=== PATIENT | male | born 1970 | race Caucasian/White ===

== ENCOUNTER 2018-12-05 06:55 | Emergency (ER) | payer BC, OTHER ==
[~2018-12-05] VITALS: Ht 165.1 cm; Wt 89.8 kg
--- NOTE | 2018-12-05 07:05 | NUR ---
pt bib wc to er bed 6 w. caregiver
[2018-12-05 07:11] VITALS: BP 132/85
--- NOTE | 2018-12-05 07:18 | NUR ---
Patient being evaluated by DR SMITH at bedside.
--- NOTE | 2018-12-05 07:19 | NUR ---
PT TO ED WITH LACERATION TO POSTERIOR HEAD X 0510 THIS AM. CAREGIVER STATES "HE HAD A BEHAVIOR EPISODE AND HIT HIS HEAD" NO LOC. NO ACTIVE BLEEDING. PT APPROPRIATE PER CAREGIVER. IN BED FOR MD LYON.
[2018-12-05] MEDS ORDERED: LIDOCAINE/EPI 1% 1:100000 20 ML VIAL INJ ONE (07:25)
--- NOTE | 2018-12-05 07:35 | NUR ---
PROCEDURE COMPLETED BY DR SMITH PT TOLERATED WELL.
--- NOTE | 2018-12-05 07:59 | NUR ---
Patient discharged with v/s stable. Written and verbal after care instructions given and explained. Patient verbalized understanding. Wheel Chair Assisted with by caregiver. All questions addressed prior to discharge. Advised to follow up with PMD.
[2018-12-05 08:00] VITALS: BP 132/85
== END 2018-12-05 07:59 | disposition home or self-care (01) ==
LOC: MED 06:55
DX: S01.01XA Laceration without foreign body of scalp, initial encounter (principal); Z86.69 Personal history of other diseases of the nervous system and sense organs; W22.01XA Walked into wall, initial encounter; Y92.89 Other specified places as the place of occurrence of the external cause; Y93.89 Activity, other specified; Y99.8 Other external cause status
CPT/HCPCS: 12002; 90471; 90715; 99283; J2001

== ENCOUNTER 2019-01-10 18:42 | Inpatient (IN) | payer BC ==
[~2019-01-10] VITALS: Ht 165.1 cm; Wt 98.0 kg
[2019-01-10 18:49] VITALS: BP 116/78
[2019-01-10 19:50] LABS: HEMATOCRIT 52.4 % (36-52); HEMOGLOBIN 17.4 g/dL (12.0-18.0); MEAN CORPUSCULAR HEMOGLOBIN 30 pg (27-31); MEAN CORPUSCULAR HGB CONC 33 g/dL (33-37); MEAN CORPUSCULAR VOLUME 90.4 fL (80-94); PLATELET COUNT (AUTO) 288 K/uL (140-450); RED BLOOD CELL COUNT(AUTO) 5.79 MIL/uL (4.20-6.10); RED CELL DISTRIBUTION WIDTH 13.5 % (11.6-13.7)
[2019-01-10] MEDS ORDERED: ONDANSETRON 4 MG/2 ML VIAL IVP ONE (20:05)
[2019-01-10] MEDS ORDERED: NACL 0.9% 1,000 ML IV ONE (20:05)
[2019-01-10 20:08] LABS: ANION GAP 17.5 (8-16); CARBON DIOXIDE 22.9 mmol/L (21-32); CREATININE 1.3 mg/dL (0.7-1.3); POTASSIUM 4.4 mmol/L (3.5-5.1)
[2019-01-10 20:13] LABS: ALBUMIN 4.5 g/dL (3.4-5.0); TOTAL BILIRUBIN 0.4 mg/dL (0.0-1.0)
[2019-01-10 20:33] LABS: BASOPHILS % (MANUAL) 0 % (0-2); EOSINOPHILS % (MANUAL) 0 % (0-4); LYMPHOCYTES % (MANUAL) 5 % (20-46); MONOCYTES % (MANUAL) 4 % (5-12)
[2019-01-10] MEDS ORDERED: LEVOFLOXACIN 750 MG/D5W PREMIX 150 ML IV ONE (20:45)
[2019-01-10] MEDS ORDERED: NACL 0.9% 1,500 ML IV ONE (22:40)
[2019-01-10 22:50] LABS: APPEARANCE,URINE CLEAR (CLEAR); BILIRUBIN,URINE NEGATIVE (NEGATIVE); BLOOD, URINE NEGATIVE (NEGATIVE); COLOR,URINE YELLOW (YELLOW); LEUKOCYTE ESTERASE ,URINE TRACE (NEGATIVE); NITRITE, URINE NEGATIVE (NEGATIVE); PH,URINE 5.5 (5.0-9.0); UGLUCOSE NEGATIVE (NEGATIVE)
[2019-01-10 23:21] LABS: RBC,URINE 0-5 /HPF (0-5)
[2019-01-11] MEDS ORDERED: metroNIDAZOLE 500 MG/NS PREMIX 100 ML IV ONE (01:10)
[2019-01-11] MEDS ORDERED: ACETAMINOPHEN 325 MG TAB PO PRN (01:40)
[2019-01-11] MEDS ORDERED: HYDROcodone/APAP 7.5/325 MG 1 TAB PO PRN (01:40)
[2019-01-11] MEDS ORDERED: MORPHINE SULFATE 2 MG/ML SYR IVP PRN (01:40)
[2019-01-11] MEDS ORDERED: DOCUSATE SODIUM 100 MG GELCAP PO PRN (01:40)
[2019-01-11 02:04] LABS: PROTHROMBIN TIME 10.1 secs (10.8-13.4)
[2019-01-11 02:06] LABS: MAGNESIUM 1.6 mg/dL (1.8-2.4); PHOSPHORUS 2.9 mg/dL (2.5-4.9); THYROID STIMULATING HORMONE 4.81 uIU/mL (0.34-3.74)
[2019-01-11] MEDS ORDERED: NEBI5TAB4 PO (02:17)
[2019-01-11] MEDS ORDERED: ESCI20TA PO (02:17)
[2019-01-11] MEDS ORDERED: VITD1000 PO (02:17)
[2019-01-11] MEDS ORDERED: ARIP20TA1 PO (02:17)
[2019-01-11] MEDS ORDERED: LORA-476 PO (02:17)
[2019-01-11] MEDS ORDERED: LAMO100T19 PO (02:17)
[2019-01-11] MEDS ORDERED: POTA10TE30 PO (02:17)
[2019-01-11] MEDS ORDERED: RISP1TAB27 PO (02:17)
[2019-01-11] MEDS ORDERED: ZOLP5TAB1 PO (02:17)
[2019-01-11] MEDS ORDERED: OXYB5TAB26 PO (02:17)
[2019-01-11] MEDS: NACL 0.9% 1,000 ML IV SCH ×2 (02:45→11:55)
[2019-01-11 03:10] VITALS: BP 106/64
[2019-01-11] MEDS: ONDANSETRON 4 MG/2 ML VIAL IM/IVP PRN (03:20)
[2019-01-11] MEDS ORDERED: LEVOFLOXACIN 500 MG/D5W PREMIX 100 ML IV SCH (03:50)
[2019-01-11 04:00] VITALS: BP 110/71
[2019-01-11 08:00] VITALS: BP 116/66
[2019-01-11] MEDS: ARIPiprazole 10 MG TAB PO SCH ×2 (08:26→20:35)
[2019-01-11] MEDS: OXYBUTYNIN 5 MG TAB PO SCH ×2 (08:26→20:36)
[2019-01-11] MEDS: risperiDONE 1 MG TAB PO SCH ×2 (08:27→20:35)
[2019-01-11] MEDS: LORazepam 1 MG TAB PO SCH ×2 (08:27→20:36)
[2019-01-11] MEDS: ESCITALOPRAM 20 MG TAB PO SCH (08:28)
[2019-01-11] MEDS: CHOLECALCIFEROL 1,000 IU TAB PO SCH (08:28)
[2019-01-11] MEDS: LACTOBACILLUS RHAMNOSUS GG 1 EACH CAP PO SCH (08:28)
[2019-01-11 09:43] LABS: ANION GAP 12.2 (8-16); CARBON DIOXIDE 29.8 mmol/L (21-32)
[2019-01-11 09:46] LABS: BASOPHILS % (AUTO) 0.1 % (0.0-2.0); EOSINOPHILS % (AUTO) 0.2 % (0.0-4.0); HEMATOCRIT 43.8 % (36-52); HEMOGLOBIN 14.9 g/dL (12.0-18.0); LYMPHOCYTES # (AUTO) 0.8 K/uL (2.0-11.5); LYMPHOCYTES % (AUTO) 9.3 % (20.5-51.1); MEAN CORPUSCULAR HEMOGLOBIN 30 pg (27-31); MEAN CORPUSCULAR HGB CONC 34 g/dL (33-37); MEAN CORPUSCULAR VOLUME 89.3 fL (80-94); MONOCYTES # (AUTO) 0.7 K/uL (0.8-1.0); MONOCYTES % (AUTO) 7.9 % (1.7-9.3); NEUTROPHILS # (AUTO) 6.8 K/uL (1.8-7.7); NEUTROPHILS % (AUTO) 82.5 % (42.2-75.2); PLATELET COUNT (AUTO) 242 K/uL (140-450); RED CELL DISTRIBUTION WIDTH 13.5 % (11.6-13.7); WHITE BLOOD COUNT (AUTO) 8.3 K/uL (4.8-10.8)
[2019-01-11] MEDS: metroNIDAZOLE 500 MG/NS PREMIX 100 ML IV SCH ×2 (10:55→16:57)
[2019-01-11] MEDS ORDERED: MAG SULF 2000 MG/WATER PREMIX 50 ML IV SCH (12:00)
[2019-01-11 12:05] VITALS: BP 116/57
[2019-01-11] MEDS ORDERED: ALBUTEROL SULFATE/IPRATROPIU 3 ML SOL IH PRN (14:05)
[2019-01-11] MEDS ORDERED: ZOLPIDEM 5 MG TAB PO PRN (14:17)
[2019-01-11] MEDS ORDERED: PANTOPRAZOLE 40 MG INJ VIAL IVP SCH (15:00)
[2019-01-11] MEDS: DEXT 5% / NACL 0.45% 1,000 ML IV SCH (15:19)
[2019-01-11 16:05] VITALS: BP 115/62
[2019-01-11 20:00] VITALS: BP 107/74
[2019-01-11] MEDS: LEVOFLOXACIN 500 MG/D5W PREMIX 100 ML IV SCH (20:35)
[2019-01-11] MEDS ORDERED: ZOLPIDEM 5 MG TAB PO SCH (21:00)
[2019-01-12] VITALS: BP 104/70
[2019-01-12] MEDS: metroNIDAZOLE 500 MG/NS PREMIX 100 ML IV SCH ×3 (01:30→17:21)
[2019-01-12] MEDS: DEXT 5% / NACL 0.45% 1,000 ML IV SCH ×3 (01:30→20:30)
[2019-01-12 04:00] VITALS: BP 114/63
[2019-01-12 06:28] LABS: ANION GAP 10.7 (8-16); CARBON DIOXIDE 28.1 mmol/L (21-32); CREATININE 0.9 mg/dL (0.7-1.3); POTASSIUM 3.8 mmol/L (3.5-5.1)
[2019-01-12 06:44] LABS: MAGNESIUM 1.9 mg/dL (1.8-2.4); PHOSPHORUS 2.6 mg/dL (2.5-4.9)
[2019-01-12 06:56] LABS: CHOL/HDL RATIO 2.5 (1-4.5)
[2019-01-12 07:17] LABS: BASOPHILS % (AUTO) 0.3 % (0.0-2.0); EOSINOPHILS # (AUTO) 0.1 K/uL (0-0.4); HEMATOCRIT 38.8 % (36-52); HEMOGLOBIN 13.3 g/dL (12.0-18.0); LYMPHOCYTES # (AUTO) 0.8 K/uL (2.0-11.5); LYMPHOCYTES % (AUTO) 13.8 % (20.5-51.1); MEAN CORPUSCULAR HEMOGLOBIN 31 pg (27-31); MEAN CORPUSCULAR HGB CONC 34 g/dL (33-37); MEAN CORPUSCULAR VOLUME 90.1 fL (80-94); MONOCYTES # (AUTO) 0.7 K/uL (0.8-1.0); MONOCYTES % (AUTO) 12.6 % (1.7-9.3); NEUTROPHILS # (AUTO) 4.3 K/uL (1.8-7.7); NEUTROPHILS % (AUTO) 72.3 % (42.2-75.2); PLATELET COUNT (AUTO) 200 K/uL (140-450); RED BLOOD CELL COUNT(AUTO) 4.31 MIL/uL (4.20-6.10); RED CELL DISTRIBUTION WIDTH 13.2 % (11.6-13.7); WHITE BLOOD COUNT (AUTO) 5.9 K/uL (4.8-10.8)
[2019-01-12 08:39] VITALS: BP 107/64
[2019-01-12] MEDS: PANTOPRAZOLE 40 MG INJ VIAL IVP SCH (09:00)
[2019-01-12] MEDS: OXYBUTYNIN 5 MG TAB PO SCH ×2 (09:54→20:38)
[2019-01-12] MEDS: ESCITALOPRAM 20 MG TAB PO SCH (09:55)
[2019-01-12] MEDS: CHOLECALCIFEROL 1,000 IU TAB PO SCH (09:55)
[2019-01-12] MEDS: risperiDONE 1 MG TAB PO SCH ×2 (09:55→20:39)
[2019-01-12] MEDS: ARIPiprazole 10 MG TAB PO SCH ×2 (09:55→20:38)
[2019-01-12] MEDS: LACTOBACILLUS RHAMNOSUS GG 1 EACH CAP PO SCH (09:55)
[2019-01-12] MEDS: LORazepam 1 MG TAB PO SCH ×2 (09:56→20:38)
[2019-01-12] MEDS: LEVOFLOXACIN 500 MG/D5W PREMIX 100 ML IV SCH (20:56)
[2019-01-13] VITALS: BP 134/75
[2019-01-13] MEDS ORDERED: cefTRIAXone 1,000 MG VIAL ONE (00:36)
[2019-01-13] MEDS: ONDANSETRON 4 MG/2 ML VIAL IM/IVP PRN (02:55)
[2019-01-13] MEDS: metroNIDAZOLE 500 MG/NS PREMIX 100 ML IV SCH ×3 (02:57→18:18)
[2019-01-13 06:24] LABS: BASOPHILS % (AUTO) 0.2 % (0.0-2.0); EOSINOPHILS # (AUTO) 0.1 K/uL (0-0.4); EOSINOPHILS % (AUTO) 1.6 % (0.0-4.0); LYMPHOCYTES % (AUTO) 15.9 % (20.5-51.1); MEAN CORPUSCULAR HEMOGLOBIN 30 pg (27-31); MEAN CORPUSCULAR HGB CONC 33 g/dL (33-37); MEAN CORPUSCULAR VOLUME 91.1 fL (80-94); MONOCYTES # (AUTO) 0.5 K/uL (0.8-1.0); MONOCYTES % (AUTO) 7.8 % (1.7-9.3); NEUTROPHILS # (AUTO) 4.7 K/uL (1.8-7.7); NEUTROPHILS % (AUTO) 74.5 % (42.2-75.2); PLATELET COUNT (AUTO) 191 K/uL (140-450); RED BLOOD CELL COUNT(AUTO) 4.61 MIL/uL (4.20-6.10); RED CELL DISTRIBUTION WIDTH 13.5 % (11.6-13.7); WHITE BLOOD COUNT (AUTO) 6.3 K/uL (4.8-10.8)
[2019-01-13] MEDS: DEXT 5% / NACL 0.45% 1,000 ML IV SCH ×2 (06:35→16:35)
[2019-01-13 06:46] LABS: ANION GAP 14.2 (8-16); CARBON DIOXIDE 26.6 mmol/L (21-32); CREATININE 0.9 mg/dL (0.7-1.3); POTASSIUM 3.8 mmol/L (3.5-5.1)
[2019-01-13 08:00] VITALS: BP 118/59
[2019-01-13] MEDS: PANTOPRAZOLE 40 MG INJ VIAL IVP SCH (09:19)
[2019-01-13] MEDS: risperiDONE 1 MG TAB PO SCH ×2 (09:20→21:49)
[2019-01-13] MEDS: LORazepam 1 MG TAB PO SCH ×2 (09:20→21:43)
[2019-01-13] MEDS: ARIPiprazole 10 MG TAB PO SCH ×2 (09:21→21:43)
[2019-01-13] MEDS: LACTOBACILLUS RHAMNOSUS GG 1 EACH CAP PO SCH (09:21)
[2019-01-13] MEDS: OXYBUTYNIN 5 MG TAB PO SCH ×2 (09:21→21:43)
[2019-01-13] MEDS: ESCITALOPRAM 20 MG TAB PO SCH (09:21)
[2019-01-13] MEDS: CHOLECALCIFEROL 1,000 IU TAB PO SCH (09:22)
[2019-01-13 20:00] VITALS: BP 104/49
[2019-01-13] MEDS: LEVOFLOXACIN 500 MG/D5W PREMIX 100 ML IV SCH (22:47)
[2019-01-14] MEDS: DEXT 5% / NACL 0.45% 1,000 ML IV SCH ×3 (03:33→21:05)
[2019-01-14 07:09] VITALS: BP 118/60
[2019-01-14] MEDS: POLYETHYLENE GLYCOL 17 GM/PKT PO SCH (09:00)
[2019-01-14] MEDS: CHOLECALCIFEROL 1,000 IU TAB PO SCH (09:18)
[2019-01-14] MEDS: LACTOBACILLUS RHAMNOSUS GG 1 EACH CAP PO SCH (09:18)
[2019-01-14] MEDS: ARIPiprazole 10 MG TAB PO SCH ×2 (09:19→20:12)
[2019-01-14] MEDS: risperiDONE 1 MG TAB PO SCH ×2 (09:19→20:13)
[2019-01-14] MEDS: OXYBUTYNIN 5 MG TAB PO SCH ×2 (09:19→20:12)
[2019-01-14] MEDS: ESCITALOPRAM 20 MG TAB PO SCH (09:20)
[2019-01-14] MEDS: LORazepam 1 MG TAB PO SCH ×2 (09:21→20:12)
[2019-01-14] MEDS: PANTOPRAZOLE 40 MG INJ VIAL IVP SCH (09:22)
[2019-01-14 16:00] VITALS: BP 124/73
[2019-01-15] VITALS: BP 127/81
[2019-01-15] MEDS: DEXT 5% / NACL 0.45% 1,000 ML IV SCH (06:17)
[2019-01-15 07:04] LABS: BASOPHILS % (AUTO) 0.3 % (0.0-2.0); EOSINOPHILS # (AUTO) 0.2 K/uL (0-0.4); EOSINOPHILS % (AUTO) 3.4 % (0.0-4.0); HEMATOCRIT 42.3 % (36-52); HEMOGLOBIN 14.2 g/dL (12.0-18.0); LYMPHOCYTES # (AUTO) 1.1 K/uL (2.0-11.5); LYMPHOCYTES % (AUTO) 16.5 % (20.5-51.1); MEAN CORPUSCULAR HEMOGLOBIN 30 pg (27-31); MEAN CORPUSCULAR HGB CONC 34 g/dL (33-37); MEAN CORPUSCULAR VOLUME 90.1 fL (80-94); MONOCYTES # (AUTO) 0.7 K/uL (0.8-1.0); MONOCYTES % (AUTO) 9.8 % (1.7-9.3); NEUTROPHILS # (AUTO) 4.7 K/uL (1.8-7.7); PLATELET COUNT (AUTO) 227 K/uL (140-450); RED BLOOD CELL COUNT(AUTO) 4.69 MIL/uL (4.20-6.10); RED CELL DISTRIBUTION WIDTH 13.2 % (11.6-13.7); WHITE BLOOD COUNT (AUTO) 6.7 K/uL (4.8-10.8)
[2019-01-15 07:59] LABS: ANION GAP 10.7 (8-16); CREATININE 0.8 mg/dL (0.7-1.3); POTASSIUM 3.7 mmol/L (3.5-5.1)
[2019-01-15 08:00] VITALS: BP 119/80
[2019-01-15] MEDS: OXYBUTYNIN 5 MG TAB PO SCH (08:21)
[2019-01-15] MEDS: LORazepam 1 MG TAB PO SCH (08:22)
[2019-01-15] MEDS: LACTOBACILLUS RHAMNOSUS GG 1 EACH CAP PO SCH (08:23)
[2019-01-15] MEDS: ESCITALOPRAM 20 MG TAB PO SCH (08:23)
[2019-01-15] MEDS: ARIPiprazole 10 MG TAB PO SCH (08:23)
[2019-01-15] MEDS: risperiDONE 1 MG TAB PO SCH (08:24)
[2019-01-15] MEDS: POLYETHYLENE GLYCOL 17 GM/PKT PO SCH (08:24)
[2019-01-15] MEDS: PANTOPRAZOLE 40 MG INJ VIAL IVP SCH (08:24)
[2019-01-15 10:06] LABS: MAGNESIUM 1.8 mg/dL (1.8-2.4); PHOSPHORUS 4.3 mg/dL (2.5-4.9)
[2019-01-15] MEDS ORDERED: DOCUSATE SODIUM 100 MG GELCAP PO SCH (10:35)
[2019-01-15] MEDS ORDERED: SENN-73 PO ×2 (12:23→13:32)
[2019-01-15] MEDS ORDERED: POLY17PD46 PO ×2 (12:23→13:32)
[2019-01-15] MEDS ORDERED: DOCU-299 PO ×2 (12:23→13:32)
[2019-01-15] MEDS ORDERED: NEBI5TAB4 PO (13:32)
[2019-01-15] MEDS ORDERED: LAMO100T19 PO (13:32)
[2019-01-15] MEDS ORDERED: LORA-476 PO (13:32)
[2019-01-15] MEDS ORDERED: RISP1TAB27 PO (13:32)
[2019-01-15] MEDS ORDERED: OXYB5TAB26 PO (13:32)
[2019-01-15] MEDS ORDERED: ARIP20TA1 PO (13:32)
[2019-01-15] MEDS ORDERED: ESCI20TA PO (13:32)
[2019-01-16] MEDS ORDERED: DOCUSATE SODIUM 100 MG GELCAP PO SCH (09:00)
== END 2019-01-15 15:15 | DRG 871 ==
LOC: MED 18:42 → MTU 01-11 01:37
PROVIDERS: ADMIT General Practice; ATTEND General Practice
PROC: 0D9670Z Drainage of Stomach with Drainage Device, Via Natural or Artificial Opening (ICD-10-PCS; principal; 2019-01-12)
DX: A41.9 Sepsis, unspecified organism (principal); J18.9 Pneumonia, unspecified organism; J98.11 Atelectasis; K56.600 Partial intestinal obstruction, unspecified as to cause; N39.0 Urinary tract infection, site not specified; K52.9 Noninfective gastroenteritis and colitis, unspecified; F32.9 Major depressive disorder, single episode, unspecified; G40.909 Epilepsy, unspecified, not intractable, without status epilepticus; I10 Essential (primary) hypertension; B95.1 Streptococcus, group B, as the cause of diseases classified elsewhere; F41.9 Anxiety disorder, unspecified; G47.00 Insomnia, unspecified; G80.9 Cerebral palsy, unspecified; N32.81 Overactive bladder; E02 Subclinical iodine-deficiency hypothyroidism; E83.42 Hypomagnesemia; F29 Unspecified psychosis not due to a substance or known physiological condition; R73.9 Hyperglycemia, unspecified; F43.9 Reaction to severe stress, unspecified; Z79.899 Other long term (current) drug therapy
CPT/HCPCS: 36415; 71045; 74018; 74250; 80048; 80053; 80299; 81001; 83036; 83605; 83690; 83735; 84100; 84443; 85025; 85610; 85730; 87040; 87070; 87081; 87086; 87205; 96361; 96365; 96367; 96375; 99285; C9113; J0696; J1644; J1956; J2270; J2405; J3475; J3490; J7030; J7060; J7620; Q0092